=== PATIENT | male | born 1995 | race Two or more races ===

== ENCOUNTER 2020-04-18 05:16 | Emergency (ER) | payer MEDICAID ==
[~2020-04-18] VITALS: Ht 182.9 cm; Wt 100.0 kg
[2020-04-18] VITALS (13 sets, daily range): BP systolic 125–158; BP diastolic 74–94
[2020-04-18] MEDS ORDERED: ondansetron/PF 4mg/2ml inj IV ONE (05:55)
[2020-04-18] MEDS ORDERED: normal saline 1000ML IV soln IVB ONE (05:55)
[2020-04-18] MEDS ORDERED: morphine 2 MG/ML inj. syringe IV PRN ×2 (05:55→14:55)
[2020-04-18 08:36] LABS: BASOPHILS % (AUTO) 0.2 % (0-1); EOSINOPHILS % (AUTO) 0 % (0-6); HEMATOCRIT 40.8 % (42.0-52.0); HEMOGLOBIN 13.8 g/dl (14.0-17.9); LYMPHOCYTES # (AUTO) 0.8 X10'3 (1.1-4.8); LYMPHOCYTES % (AUTO) 5.7 % (21-51); MEAN CORPUSCULAR HEMOGLOBIN 31.6 PG (27.0-31.0); MEAN CORPUSCULAR HGB CONC 33.9 g/dL (33.0-36.5); MEAN CORPUSCULAR VOLUME 93.1 FL (78-98); MEAN PLATELET VOLUME 8.5 FL (7.4-10.4); MONOCYTES # (AUTO) 1.2 X10'3 (0-0.9); MONOCYTES % (AUTO) 9.1 % (2-12); NEUTROPHILS # (AUTO) 11.4 X10'3 (1.8-7.7); PLATELET COUNT 182 X10'3 (140-440); RED BLOOD COUNT 4.38 X10'6 (4.70-6.10); RED CELL DISTRIBUTION WIDTH 12.7 % (11.5-14.5); WHITE BLOOD COUNT 13.5 X10'3 (4.5-11.0)
[2020-04-18 08:52] LABS: ALANINE AMINOTRANSFERASE 29 U/L (12-78); ALBUMIN/GLOBULIN RATIO 1.1 (1.1-1.5); ALKALINE PHOSPHATASE 69 IU/L (46-116); ANION GAP 9 (8-16); ASPARTATE AMINO TRANSFERASE 22 U/L (10-37); BILIRUBIN,TOTAL 0.9 MG/DL (0.1-1.0); BLOOD UREA NITROGEN 14 MG/DL (7-18); BUN/CREATININE RATIO 13.7 (5.4-32.0); CALCIUM 8.8 MG/DL (8.5-10.1); CHLORIDE 104 MMOL/L (99-107); CREATININE 1.02 MG/DL (0.60-1.10); GLUCOSE 125 MG/DL (70-104); LIPASE 93 U/L (73-393); POTASSIUM 3.7 MMOL/L (3.5-5.1); SODIUM 141 MMOL/L (135-145); TOTAL CARBON DIOXIDE 28.4 MMOL/L (24-32); TOTAL PROTEIN 7.6 G/DL (6.4-8.2); eGFR 89 ML/MIN
[2020-04-18] MEDS ORDERED: piperacillin/tazo 4.5gm/100ml 100 ML IV ONE (10:20)
[2020-04-18] MEDS ORDERED: NO HOME MEDS (11:00)
[2020-04-18] MEDS ORDERED: magnesium Cl slow-release 64mg tablet PO PRN (11:30)
[2020-04-18] MEDS ORDERED: magnesium 4gm in 100ml NS 100 ML IV PRN (11:30)
[2020-04-18] MEDS ORDERED: potassium Cl 20 mEq SR tablet PO PRN ×2 (11:30)
[2020-04-18] MEDS ORDERED: ondansetron/PF 4mg/2ml inj IV PRN ×2 (11:30→14:55)
[2020-04-18] MEDS ORDERED: normal saline 1000ml 1,000 ML IV SCH (11:30)
[2020-04-18] MEDS ORDERED: magnesium 2GM in 50ml NS 50 ML IV PRN (11:30)
[2020-04-18] MEDS ORDERED: potassium Cl 40MEQ/1/2NS 520ml 520 ML IV PRN ×2 (11:30)
--- NOTE | 2020-04-18 14:29 | NUR ---
PATIENT TAKEN TO SURGERY PER OR TECH, WITH ALL OF PATIENT'S BELONGINGS. REPORT CALLED TO RECOVERY ROOM. COVID TEST IS NEGATIVE.
[2020-04-18] MEDS ORDERED: BUPIVAcaine/PF 2.5 mg/ml (0.25%) 30ml vial ONE (14:35)
[2020-04-18] MEDS ORDERED: sevoflurane 250ml liquid IH ONE (14:53)
[2020-04-18] MEDS ORDERED: meperidine/PF 25mg/ml syringe IV PRN ×3 (14:55)
[2020-04-18] MEDS ORDERED: morphine 4 MG/ML inj SYRINge IV PRN (14:55)
[2020-04-18] MEDS ORDERED: proCHLORperazine 10 MG/2 ml inj IV PRN (14:55)
[2020-04-18] MEDS ORDERED: ringers solution, lacted 1,000 ML IV SCH (14:55)
[2020-04-18] MEDS ORDERED: fentaNYL/PF 50MCG/1 ML 2ML syringe ONE (14:57)
[2020-04-18] MEDS ORDERED: midazolam 2 mg/2 ml injection ONE (14:57)
[2020-04-18] MEDS ORDERED: rocuronium 10mg/ml inj IV ONE (14:58)
[2020-04-18] MEDS ORDERED: propofol inj 20 ML IV ONE (14:58)
[2020-04-18] MEDS ORDERED: neostigmine methylsulfate 1 MG/ML 10ml vial ONE (15:51)
[2020-04-18] MEDS ORDERED: glycopyrrolate 0.2mg/ml inj ONE (15:51)
--- NOTE | 2020-04-18 16:06 | NUR ---
Received from OR via [facility], accompanied by Anesthesiologist DR BRANNON and report given by Anesthesiologist. PT DROWSY, DENIES PAIN, ABDOMEN W/LAP SITES W/DERMABOND CDI. Addendum: 04/18/20 at 1628 by Sita Amin RN Amended: Links added.
[2020-04-18] MEDS ORDERED: HYDROcodone/acetaminophen 10/325mg tab PO ONE (17:00)
--- NOTE | 2020-04-18 18:26 | NUR ---
PT UP AND ABLE TO AMBULATE, VOIDED, PAIN IS TOLERABLE. D/C INSTRUCTIONS GIVEN AND GONE OVER W/PT AND PTS S/O WHO VERBALIZED UNDERSTANDING. PT D/CD TO HOME VIA W/C TO PRIVATE VEHICLE W/O INCIDENT. Addendum: 04/18/20 at 1837 by Sita Amin RN Amended: Links added.
[2020-04-18] MEDS ORDERED: K and/or MAG REPLACEMENT MC SCH (20:00)
== END 2020-04-18 18:26 | disposition home or self-care (01) ==
LOC: ER 05:17 → UNDOADMIN 11:26 → ED HOLD 11:26 → UNDODISIN 18:26
PROC: 0DTJ4ZZ Resection of Appendix, Percutaneous Endoscopic Approach (ICD-10-PCS; principal; 2020-04-18 14:53)
DX: K35.80 Unspecified acute appendicitis (principal); R10.31 Right lower quadrant pain; Z20.828 Contact with and (suspected) exposure to other viral communicable diseases; Z88.8 Allergy status to other drugs, medicaments and biological substances; Z72.89 Other problems related to lifestyle
CPT/HCPCS: 36415; 44970; 74176; 80053; 83690; 85025; 87635; 96361; 96365; 96375; 99285; J2250; J2270; J2405; J2543; J2704; J2710; J3010; J3490; J7030; J7120; 64450; 96374; A4215; A4618; A7000; G0378

== ENCOUNTER 2024-07-28 14:25 | Outpatient (CLI) | payer MEDICAID ==
[~2024-07-28 14:25] MED LIST: NO HOME MEDS
== END 2024-07-28 23:59 | disposition home or self-care (01) ==
LOC: MRI02 14:25
PROVIDERS: ATTEND Orthopaedic Surgery
DX: S86.819A Strain of other muscle(s) and tendon(s) at lower leg level, unspecified leg, initial encounter (principal); M25.562 Pain in left knee; M94.8X6 Other specified disorders of cartilage, lower leg; X58.XXXA Exposure to other specified factors, initial encounter; Y93.89 Activity, other specified; Y92.89 Other specified places as the place of occurrence of the external cause; Y99.8 Other external cause status
CPT/HCPCS: 73721